=== PATIENT | male | born 1940 | race Caucasian/White ===

== ENCOUNTER → 2018-08-10 08:50 | Outpatient (CLI) | payer MEDICARE, SELFPAY ==
[2018-08-10 10:16] LABS: Alanine Aminotransferase 32 IU/L (21-72); Albumin 3.9 g/dL (3.5-5.0); Albumin Globulin Ratio 1.7 (1.0-2.8); Alkaline Phosphatase 55 U/L (38-126); Aspartate Aminotransferase 23 IU/L (17-59); BUN Creatinine Ratio 21.1 (6-22); Bilirubin Total 0.5 mg/dL (0.2-1.3); Blood Urea Nitrogen 19 mg/dL (9-20); Calcium 9.2 mg/dL (8.4-10.2); Carbon Dioxide 30 mmol/L (22-32); Chloride 103 mmol/L (98-107); Estimated Glomerular Filt Rate > 60.0 mL/min (>60); Globulin 2.3 g/dL (1.7-4.1); Glucose 111 mg/dL (80-110); HEMOLYSIS < 15 (0-50); Potassium 4.8 mmol/L (3.4-5.1); Sodium 143 mmol/L (137-145); Total Protein 6.2 g/dL (6.3-8.2)
[2018-08-14 09:07] LABS: Lipoprofile NMR SEE SEPARATE REPORTS
== END ==
PROVIDERS: Family Provider Physician Assistant; PCP Physician Assistant; Visit Provider Specialist
DX: E78.2 Mixed hyperlipidemia (principal)
CPT/HCPCS: 36415; 80053; 83704

== ENCOUNTER → 2019-05-17 07:17 | Outpatient (CLI) | payer MEDICARE, SELFPAY ==
[2019-05-17 08:37] LABS: Alanine Aminotransferase 38 IU/L (21-72); Albumin 4.1 g/dL (3.5-5.0); Albumin Globulin Ratio 1.7 (1.0-2.8); Alkaline Phosphatase 61 U/L (38-126); Aspartate Aminotransferase 30 IU/L (17-59); Bilirubin Total 0.5 mg/dL (0.2-1.3); Blood Urea Nitrogen 18 mg/dL (9-20); Calcium 9.2 mg/dL (8.4-10.2); Carbon Dioxide 33 mmol/L (22-32); Chloride 102 mmol/L (98-107); Estimated Glomerular Filt Rate > 60.0 mL/min (>60); Globulin 2.4 g/dL (1.7-4.1); Glucose 102 mg/dL (80-110); HEMOLYSIS < 15 (0-50); Potassium 4.2 mmol/L (3.4-5.1); Sodium 140 mmol/L (137-145); Total Protein 6.5 g/dL (6.3-8.2)
[2019-05-21 08:34] LABS: Lipoprofile NMR SEE SEPARATE REPORTS
== END ==
PROVIDERS: PCP Physician Assistant; Visit Provider Specialist
DX: E78.2 Mixed hyperlipidemia (principal)
CPT/HCPCS: 36415; 80053; 83704

== ENCOUNTER 2019-12-25 08:55 | Emergency (ER) | payer MEDICARE, SELFPAY ==
[2019-12-25] VITALS (9 sets, daily range): BP systolic 157–214; BP diastolic 70–104; PULSE 54–69; RESP 12–22; TEMP 36.4; O2SAT 97–100
--- NOTE | 2019-12-25 08:57 | DI.RAD.S_ITS ---
PROCEDURE: XR ACUTE ABDOMEN SERIES INDICATIONS: Abdominal pain, N/V/D TECHNIQUE: One view chest and two views of the abdomen were acquired. COMPARISON: None. FINDINGS: Surgical changes and devices: None. Chest: Lungs are clear. Heart size is normal. No pleural effusions. No pneumoperitoneum. Abdomen: Bowel gas pattern is normal. No suspicious calcifications. Visualized solid organ contours appear normal. Bones: No suspicious bony lesions. Mild degenerative changes in the right hip and right acromioclavicular joint. IMPRESSION: 1. No radiographic evidence of acute process in the abdomen. 2. No acute cardiopulmonary disease. Dictated by: Gracy Crain M.D. on 12/25/2019 at 10:04 Approved by: Gracy Crain M.D. on 12/25/2019 at 10:06
--- NOTE | 2019-12-25 09:07 | ED_ITS ---
HPI - Nausea/Vomiting/Diarrhea General Chief complaint: Nausea/Vomiting/Diarrhea Stated complaint: N/V/D , Syncopal Time Seen by Provider: 12/25/19 08:56 Source: patient, family and EMS Mode of arrival: EMS Limitations: no limitations History of Present Illness HPI Narrative: 78M non smoker with history of HTN, hyperlipidemia, SAH presents by EMS for chief complaint of 1 episode of vomiting and a few episodes of loose stools. He feels dehydrated and lightheaded upon sitting or standing. He went to bed in his normal state of health and awoke like this. He denies any chest pain, shortness of breath nor abdominal pain. He denies dysuria, frequency or urgency. He denies recent antibiotics, travel, exposure to ill persons or bad food. He denies any dietary or medication change. PCP is Danna Woo MD complaint: nausea, vomiting and diarrhea Onset (ago): hour(s) Description of Vomiting: food contents Description of Diarrhea: watery Associated Abdominal Pain: No Relieving factors: none Exacerbating factors: none Related Data Home Medications Medication Instructions Recorded Confirmed atorvastatin [Lipitor] 10 mg PO QAM #0 08/20/16 12/25/19 lisinopril 10 mg PO QAM #0 08/20/16 12/25/19 Previous Rx's Medication Instructions Recorded ondansetron 4 mg PO TID-QID PRN #10 tab 12/25/19 Allergies Allergy/AdvReac Type Severity Reaction Status Date / Time No Known Drug Allergies Allergy Verified 12/25/19 10:23 Review of Systems Constitutional Constitutional: Denies chills, Denies fatigue, Denies fever(s), Denies frequent falls, Denies lethargy and Reports weakness Eyes Eyes: Denies change in vision, Denies eye discharge, Denies irritation and Denies loss of vision ENT Ears, Nose, Mouth, and Throat: Denies change in voice, Denies dizziness, Denies neck pain, Denies sore throat and Denies throat swelling Cardiovascular Cardiovascular: Denies chest pain, Denies irregular heart rhythm, Denies lightheadedness, Denies palpitations, Denies dyspnea, Denies dyspnea on exertion and Denies orthopnea Respiratory Respiratory: Denies cough, Denies dyspnea, Denies dyspnea on exertion and Denies wheezing Gastrointestinal Gastrointestinal: Denies abdominal pain, Denies change in bowel habits, Reports diarrhea, Reports nausea and Reports vomiting Genitourinary Genitourinary: Denies hematuria, Denies flank pain, Denies urinary incontinence and Denies urinary urgency Musculoskeletal Musculoskeletal: Denies back pain, Denies muscle weakness, Denies neck pain, Denies numbness and Denies tingling Integumentary/Breasts Skin/Breast: Denies pruritus, Denies erythema, Denies rash and Denies wounds Neurologic Neurologic: Denies behavioral changes, Denies confusion, Denies dizziness, Denies frequent falls, Denies loss of vision, Denies numbness, Denies tingling and Reports weakness Psychiatric Psychiatric: Denies anxiety, Denies behavioral changes, Denies confusion, Denies depression, Denies homicidal ideation and Denies suicidal ideation Endocrine Endocrine: Denies fatigue, Denies flushing and Denies palpitations Hematologic/Lymphatic Hematologic/Lymphatic: Denies easy bruising Allergic/Immunologic Allergic/Immunologic: Denies urticaria, Denies throat swelling and Denies wheezing Patient History Social History Smoking Status: Never smoker Substance Use Type: does not use Exam Narrative Exam Narrative: GENERAL: [78] year old patient appears stated age. Well- nourished, well-developed patient, in mild distress. HEAD: Atraumatic. Normocephalic. EYES: Pupils equal round and reactive. Extraocular motions intact. No scleral icterus. No injection or drainage. ENT: Nose without bleeding, purulent drainage. Throat without erythema, tonsillar hypertrophy or exudate. Airway patent. NECK: Trachea midline. Non tender CARDIOVASCULAR: Regular rate and rhythm without murmurs, gallops, or rubs. RESPIRATORY: Clear to auscultation. Breath sounds equal bilaterally. No wheezes, rales, or rhonchi. GASTROINTESTINAL: Abdomen soft, non-tender, nondistended. EXTREMITIES: No edema or joint tenderness. BACK: Nontender without deformity or crepitance. No flank tenderness. NEURO: AOx3. SKIN: No rash or erythema of visible areas Initial Vital Signs Initial Vital Signs: Vital Signs Temperature 97.6 F 12/25/19 08:45 Pulse Rate 68 12/25/19 08:45 Respiratory Rate 12 12/25/19 08:45 Blood Pressure 194/88 H 12/25/19 08:45 Pulse Oximetry 100 12/25/19 08:45 Course Orders Ordered: ED Orders 12/25/19 10:11 CT angio head and neck Stat 12/25/19 10:13 Lactate (Lactic Acid) Stat Discontinued Medications Hydralazine HCl (Apresoline) 10 mg IV NOW ONE Stop: 12/25/19 10:10 Last Admin: 12/25/19 11:30 Dose: 10 mg Documented by: TERESA Sodium Chloride (Normal Saline 0.9%) 1,000 mls @ 1,000 mls/hr IV BOLUS ONE Stop: 12/25/19 09:55 Last Infusion: 12/25/19 10:20 Dose: 0 mls/hr Documented by: Admin: 12/25/19 09:19 Dose: 1,000 mls/hr Documented by: MARCOS Sodium Chloride (Normal Saline 0.9%) 1,000 mls @ 150 mls/hr IV BOLUS ONE Stop: 12/25/19 18:12 Last Infusion: 12/25/19 12:46 Dose: 0 mls/hr Documented by: Admin: 12/25/19 11:34 Dose: 150 mls/hr Documented by: TERESA Ondansetron HCl (Zofran) 4 mg IV Q4HR PRN PRN Reason: Nausea And Vomiting Last Admin: 12/25/19 09:19 Dose: 4 mg Documented by: MARCOS Pantoprazole Sodium (Protonix) 40 mg IV NOW ONE Stop: 12/25/19 08:57 Last Admin: 12/25/19 09:19 Dose: 40 mg Documented by: MARCOS Vital Signs Vital signs: Vital Signs - 8 hr 12/25/19 11:21 12/25/19 11:30 12/25/19 12:32 Pulse Rate 60 67 69 Respiratory Rate 14 17 Blood Pressure 187/104 H Blood Pressure [Right Arm] 187/104 H 157/70 H Pulse Oximetry 99 97 12/25/19 12:45 12/25/19 13:16 Pulse Rate 60 60 Respiratory Rate 15 Blood Pressure 157/78 H Blood Pressure [Right Arm] 170/74 H Pulse Oximetry 99 MDM - Nausea/Vomiting/Diarrhea Lab Data Result diagrams: 12/25/19 09:10 12/25/19 09:10 Labs: Lab Results 12/25/19 12/25/19 12/25/19 Range/Units 09:10 09:10 10:13 WBC 4.3 L (4.5-11.0) X10^3/uL RBC 4.42 L (4.5-5.9) X10^6/uL Hgb 14.0 (13.5-17.5) g/dL Hct 40.3 L (41-53) % MCV 91.2 (80-100) fL MCH 31.6 (26-34) PG MCHC 34.7 (30-36) % RDW 13.4 (11.6-14.8) % Plt Count 153 (150-400) X10^3/uL Neut % (Auto) 65.9 (50-75) % Lymph % (Auto) 21.9 L (25-40) % Roosevelt % (Auto) 8.9 (3-14) % Eos % (Auto) 2.9 (2-4) % Baso % (Auto) 0.4 (0-2) % Neut # (Auto) 2800 (0910-1173) /uL Lymph # (Auto) 900 L (6341-7315) /uL Roosevelt # (Auto) 400 (0-900) /uL Eos # (Auto) 100 (0-450) /uL Baso # (Auto) 0 (0-100) /uL Sodium 136 L (137-145) mmol/L Potassium 4.1 (3.4-5.1) mmol/L Chloride 101 (98-107) mmol/L Carbon Dioxide 29 (22-32) mmol/L BUN 17 (9-20) mg/dL Creatinine 0.81 (0.66-1.25) mg/dL Estimated GFR > 60.0 (>60) mL/min BUN/Creatinine Ratio 21.0 (6-22) Glucose 157 H (80-110) mg/dL Lactate 2.0 (0.7-2.1) mmol/L Calcium 9.3 (8.4-10.2) mg/dL Total Bilirubin 0.5 (0.2-1.3) mg/dL AST 35 (17-59) IU/L ALT 39 (<50) IU/L Alkaline Phosphatase 55 (38-126) U/L Total Protein 7.0 (6.3-8.2) g/dL Albumin 4.3 (3.5-5.0) g/dL Globulin 2.7 (1.7-4.1) g/dL Albumin/Globulin Ratio 1.6 (1.0-2.8) Urine Dip Bedside Urine Glucose Negative Bedside Urine Bilirubin - Negative Bedside Urine Ketone - Negative Urine Specific Marshall 1.015 Bedside Urine Occult Blood +/- Bedside Urine pH 7.5 Bedside Urine Protein +/- 15 Bedside Urine Urobilinogen - Negative Bedside Urine Nitrite - Negative Bedside Urine Leukocytes - Negative Esterase Imaging Data CT scan - head: Radiologist's Impression: Jimbo Duran 78 M [address] [address] [address] Scan Report Signed Patient: Jimbo Duran MMR#: [id number] : [id number]:[id number] Age/Sex: 78 / MDate of Service: 12/25/19 Loc: ED Accession Number: [id number] Procedure: CT head/brain wo con Ordering Provider: Jaylan Reilly D.O. PROCEDURE: CT HEAD/BRAIN WO CON INDICATIONS: syncope, hx SAH, aneurysms TECHNIQUE: Noncontrast 4.5 mm thick angled axial sections acquired from the foramen magnum to the vertex, with coronal and sagittal reformats. For radiation dose reduction, the following was used: automated exposure control, adjustment of mA and/or kV according to patient size. COMPARISON: None. FINDINGS: Image quality: Excellent. CSF spaces: Basal cisterns are patent. No extra-axial fluid collections. The ventricles are symmetric in size and shape. Brain: No intracranial bleeds or masses. There is cerebral volume loss for age, with resultant ventricular and sulcal prominence. There are periventricular and deep white matter chronic small vessel ischemic changes. There is intracranial internal carotid artery atherosclerosis. Skull and face: Calvarium and visualized facial bones appear intact, without suspicious lesions. Sinuses: Visualized sinuses and mastoids are clear. IMPRESSION: No acute intracranial disease process. Dictated by: Rachana Orosco MD, PhD on 12/25/2019 at 10:27 Approved by: Rachana Orosco MD, PhD on 12/25/2019 at 10:28 Chart [facility] DATE TYPE STATUS AUTHOR Hx 12/25/19 10:11 Simone Rod 12/25/19 09:42 Rachana Orosco 12/25/19 08:57 Gracy [place],Jimbo M 78, M1940 [facility] ER, Main ED 86.183kg Nausea/Vomiting/Diarrhea Search Chart No Data to Display ONSET Today 13:16 Jimbo Duran 78 M [address] [address] [address] Scan Report Signed Patient: Jimbo Duran MMR#: [id number] : [id number]:[id number] Age/Sex: 78 / MDate of Service: 12/25/19 Loc: ED Accession Number: [id number] Procedure: CT angio head and neck Ordering Provider: Jaylan Reilly D.O. PROCEDURE: CT ANGIO HEAD AND NECK INDICATIONS: syncope, HTN, vomiting, hx SAH TECHNIQUE: Pre-contrast 4.5 mm thick sections acquired from the foramen magnum to the vertex. After the administration of intravenous contrast, 1 mm thick sections acquired from the aortic arch through the [place]. Post-contrast 4.5 mm thick sections then re-acquired from the foramen magnum to the vertex. 3-dimensional zjtlzna-ocxnsaaos-fcoijrhinl (MIP) and/or volume rendering reformats were acquired of the central intracranial vasculature and neck separately. COMPARISON: [facility], CT, HEAD WITHOUT CONTRAST, 08/20/2016, 14:56. [facility], CT, CT HEAD/BRAIN WO CON, 12/25/2019, 9:40. FINDINGS: Image quality: There is streak artifact due to injected contrast from the left upper extremity. BRAIN: CSF spaces: Ventricles are unchanged in size and shape. Basal cisterns are patent. No extra-axial fluid collections. Brain: No hematoma collection, mass, or mass effect. Connor-white matter interface appears preserved. There are periventricular and subcortical hypodensities compatible with moderate chronic small vessel ischemic changes. Skull and face: Calvarium and facial bones appear intact, without suspicious lesions. Orbits appear normal. Sinuses: Sinuses and mastoids are clear. HEAD CT ANGIOGRAPHY: Anterior circulation: Intracranial internal carotid arteries are normal in size and appear patent bilaterally. There is mild atherosclerotic calcification along the cavernous segments of the internal carotid arteries. The paired anterior cerebral arteries appear patent bilaterally. The anterior communicating artery also appears patent. The middle cerebral arteries appear patent bilaterally. No high-grade stenosis, occlusion, or filling defects. No cerebral aneurysms identified. Posterior circulation: Visualized portions of the vertebral arteries demonstrate normal caliber, and join to form a patent basilar artery. The posterior cerebral arteries appears patent bilaterally. No high-grade stenosis, occlusion, or filling defects. No cerebral aneurysms identified. NECK CT ANGIOGRAPHY: Carotid system: The great vessels demonstrate a conventional anatomy as they arise from the aortic arch. The origins of the common carotid arteries appear patent. The common carotid arteries demonstrate normal caliber and courses. There is bilateral calcified plaque in the carotid bulbs with narrowing of less than 50%. The subsequent internal carotid arteries demonstrate normal calibers and courses. Posterior circulation: The origins of the vertebral arteries both appear patent. The more superior extracranial portions of both vertebral arteries also demonstrate normal courses and calibers. They join to form a patent basilar artery. There is atherosclerotic plaque with stenoses at the origin and in the proximal left subclavian artery with narrowing of greater than 50%. Evaluation is limited by streak artifact from calcified plaque and injected contrast in the adjacent left innominate vein. Soft tissues: Visualized neck soft tissues demonstrate no suspicious abnormalities. Bones: No suspicious bony lesions. Visualized cervical spine demonstrates straightening of the cervical lordosis. There are degenerative changes throughout the cervical spine including including moderate to severe degeneration of C5-C6 and C6-C7 with posterior disc osteophyte complexes. There is associated moderate to severe bony spinal canal narrowing at C5-C6 and moderate narrowing at C6-7. IMPRESSION: 1. No discrete cerebral aneurysm identified. 2. No high-grade stenosis or occlusion of the central intracranial arteries. 3. Bilateral narrowing of less than 50% in the carotid bulbs. 4. 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 Any quantitative measurements of stenosis were performed using NASCET criteria. Dictated by: Simone Rod M.D. on 12/25/2019 at 10:59 Approved by: Simone Rod M.D. on 12/25/2019 at 11:25 MDM Narrative Medical decision making narrative: Multiple etiologies for patient's symptoms considered including: [N/V/D is likely viral in origin given lack of other risks. Multiple etiologies of syncope considered including vagal (likely given that episode happened on toilet while having diarrhea). Given similar history to prior episode of syncope secondary to possible aneurysm additional CTA ordered] Patient's symptoms improved or duration of stay with above-stated therapies. Findings and discharge diagnosis discussed with patient/family followed by verbalization of understanding Return precautions discussed with patient/family whom verbalize understanding. Discharge Plan Departure Patient Disposition: Home Clinical Impression: Dehydration Vomiting Qualifiers: Vomiting type: unspecified Vomiting Intractability: non-intractable Nausea presence: with nausea Qualified Code(s): R11.2 - Nausea with vomiting, unspecified Hypertension Qualifiers: Hypertension type: essential hypertension Qualified Code(s): I10 - Essential (primary) hypertension Discharge Date/Time: 12/25/19 13:17 Instructions: Essential Hypertension, DI for Dehydration -- Adult, DI for Vomiting -- Adult Activity Restrictions/Additional Instructions: *You have been diagnosed with [vomiting, diarrhea, hypertension] *What to do: *Take medications as directed: Please increase your lisinopril from 10 mg daily to 20 mg daily for the next 5 days, or until you follow-up with your primary care provider if sooner *Follow up with your primary care provider in 2-3 days, call for an appointment. Let them know you were seen in the Emergency Department and that we ask that you be seen in follow up *Return to ER if you should have any new, worsening or concerning symptoms 1. Drink plenty of fluids with frequent small sips. 2. For the next 24 hours a clear liquid diet is advised. After that please employ a brat diet which would include bananas, rice, apples, toast. Prescriptions: New ondansetron 4 mg tablet,disintegrating 4 mg PO TID-QID PRN (Reason: nausea and vomiting) Qty: 10 RF: 0 No Action lisinopril 10 MG tablet 10 mg PO QAM Qty: 0 RF: 0 atorvastatin [Lipitor] 10 MG tablet 10 mg PO QAM Qty: 0 RF: 0 Referrals: Ami Woo PA-C [Primary Care Provider] -
[2019-12-25] MEDS: PANTOPRAZOLE 40 MG VIAL IV (09:19)
[2019-12-25] MEDS: SODIUM CHLORIDE 0.9% 1,000 ML 1000 ML IV (09:19)
[2019-12-25] MEDS: ONDANSETRON 4 MG/2 ML INJ IV (09:19)
[2019-12-25 09:26] LABS: Add Manual Diff / Slide Review NO; Basophils Absolute Auto 0 /uL (0-100); Basophils Percent Auto 0.4 % (0-2); Eosinophils Absolute Auto 100 /uL (0-450); Eosinophils Percent Auto 2.9 % (2-4); Hematocrit 40.3 % (41-53); Lymphocytes Absolute Auto 900 /uL (1100-4500); Lymphocytes Percent Auto 21.9 % (25-40); Mean Corpuscular HGB Conc 34.7 % (30-36); Mean Corpuscular Hemoglobin 31.6 PG (26-34); Mean Corpuscular Volume 91.2 fL (80-100); Monocytes Absolute Auto 400 /uL (0-900); Monocytes Percent Auto 8.9 % (3-14); Neutrophils Absolute Auto 2800 /uL (1500-7000); Neutrophils Percent Auto 65.9 % (50-75); Platelet Count 153 X10^3/uL (150-400); Red Blood Cell Count 4.42 X10^6/uL (4.5-5.9); Red Cell Distribution Width 13.4 % (11.6-14.8); White Blood Cell Count 4.3 X10^3/uL (4.5-11.0)
[2019-12-25 09:38] LABS: Alanine Aminotransferase 39 IU/L (<50); Albumin 4.3 g/dL (3.5-5.0); Albumin Globulin Ratio 1.6 (1.0-2.8); Alkaline Phosphatase 55 U/L (38-126); Aspartate Aminotransferase 35 IU/L (17-59); Bilirubin Total 0.5 mg/dL (0.2-1.3); Blood Urea Nitrogen 17 mg/dL (9-20); Calcium 9.3 mg/dL (8.4-10.2); Carbon Dioxide 29 mmol/L (22-32); Chloride 101 mmol/L (98-107); Estimated Glomerular Filt Rate > 60.0 mL/min (>60); Globulin 2.7 g/dL (1.7-4.1); Glucose 157 mg/dL (80-110); HEMOLYSIS < 15 (0-50); Potassium 4.1 mmol/L (3.4-5.1); Sodium 136 mmol/L (137-145)
--- NOTE | 2019-12-25 09:42 | DI.CT.S_ITS ---
PROCEDURE: CT HEAD/BRAIN WO CON INDICATIONS: syncope, hx SAH, aneurysms TECHNIQUE: Noncontrast 4.5 mm thick angled axial sections acquired from the foramen magnum to the vertex, with coronal and sagittal reformats. For radiation dose reduction, the following was used: automated exposure control, adjustment of mA and/or kV according to patient size. COMPARISON: None. FINDINGS: Image quality: Excellent. CSF spaces: Basal cisterns are patent. No extra-axial fluid collections. The ventricles are symmetric in size and shape. Brain: No intracranial bleeds or masses. There is cerebral volume loss for age, with resultant ventricular and sulcal prominence. There are periventricular and deep white matter chronic small vessel ischemic changes. There is intracranial internal carotid artery atherosclerosis. Skull and face: Calvarium and visualized facial bones appear intact, without suspicious lesions. Sinuses: Visualized sinuses and mastoids are clear. IMPRESSION: No acute intracranial disease process. Dictated by: Rachana Orosco MD, PhD on 12/25/2019 at 10:27 Approved by: Rachana Orosco MD, PhD on 12/25/2019 at 10:28
--- NOTE | 2019-12-25 10:11 | DI.CT.S_ITS ---
PROCEDURE: CT ANGIO HEAD AND NECK INDICATIONS: syncope, HTN, vomiting, hx SAH TECHNIQUE: Pre-contrast 4.5 mm thick sections acquired from the foramen magnum to the vertex. After the administration of intravenous contrast, 1 mm thick sections acquired from the aortic arch through the [employer] of [place]. Post-contrast 4.5 mm thick sections then re-acquired from the foramen magnum to the vertex. 3-dimensional bqbnxpa-nblyzxxzw-ooxskvfaqu (MIP) and/or volume rendering reformats were acquired of the central intracranial vasculature and neck separately. COMPARISON: [facility], CT, HEAD WITHOUT CONTRAST, 08/20/2016, 14:56. [facility], CT, CT HEAD/BRAIN WO CON, 12/25/2019, 9:40. FINDINGS: Image quality: There is streak artifact due to injected contrast from the left upper extremity. BRAIN: CSF spaces: Ventricles are unchanged in size and shape. Basal cisterns are patent. No extra-axial fluid collections. Brain: No hematoma collection, mass, or mass effect. Connor-white matter interface appears preserved. There are periventricular and subcortical hypodensities compatible with moderate chronic small vessel ischemic changes. Skull and face: Calvarium and facial bones appear intact, without suspicious lesions. Orbits appear normal. Sinuses: Sinuses and mastoids are clear. HEAD CT ANGIOGRAPHY: Anterior circulation: Intracranial internal carotid arteries are normal in size and appear patent bilaterally. There is mild atherosclerotic calcification along the cavernous segments of the internal carotid arteries. The paired anterior cerebral arteries appear patent bilaterally. The anterior communicating artery also appears patent. The middle cerebral arteries appear patent bilaterally. No high-grade stenosis, occlusion, or filling defects. No cerebral aneurysms identified. Posterior circulation: Visualized portions of the vertebral arteries demonstrate normal caliber, and join to form a patent basilar artery. The posterior cerebral arteries appears patent bilaterally. No high-grade stenosis, occlusion, or filling defects. No cerebral aneurysms identified. NECK CT ANGIOGRAPHY: Carotid system: The great vessels demonstrate a conventional anatomy as they arise from the aortic arch. The origins of the common carotid arteries appear patent. The common carotid arteries demonstrate normal caliber and courses. There is bilateral calcified plaque in the carotid bulbs with narrowing of less than 50%. The subsequent internal carotid arteries demonstrate normal calibers and courses. Posterior circulation: The origins of the vertebral arteries both appear patent. The more superior extracranial portions of both vertebral arteries also demonstrate normal courses and calibers. They join to form a patent basilar artery. There is atherosclerotic plaque with stenoses at the origin and in the proximal left subclavian artery with narrowing of greater than 50%. Evaluation is limited by streak artifact from calcified plaque and injected contrast in the adjacent left innominate vein. Soft tissues: Visualized neck soft tissues demonstrate no suspicious abnormalities. Bones: No suspicious bony lesions. Visualized cervical spine demonstrates straightening of the cervical lordosis. There are degenerative changes throughout the cervical spine including including moderate to severe degeneration of C5-C6 and C6-C7 with posterior disc osteophyte complexes. There is associated moderate to severe bony spinal canal narrowing at C5-C6 and moderate narrowing at C6-7. IMPRESSION: 1. No discrete cerebral aneurysm identified. 2. No high-grade stenosis or occlusion of the central intracranial arteries. 3. Bilateral narrowing of less than 50% in the carotid bulbs. 4. 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 Any quantitative measurements of stenosis were performed using NASCET criteria. Dictated by: Simone Rod M.D. on 12/25/2019 at 10:59 Approved by: Simone Rod M.D. on 12/25/2019 at 11:25
[2019-12-25] MEDS: HYDRALAZINE 20 MG/ML VIAL 10 MG IV (11:30)
[2019-12-25] MEDS: SODIUM CHLORIDE 0.9% 1,000 ML 150 ML IV (11:34)
--- NOTE | 2019-12-25 12:35 | PC.NURSE ---
Pt w/ nausea / vomiting and near syncopal event this am. No LOC or fall. 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 Pt neuro is intact, a/o x 4. BEFAST negative. Denies headache or recent trauma.
--- NOTE | 2019-12-25 17:47 | PC.NURSE ---
Ami Woo called back to get update on patient. Given verbal report. She will arrange for follow up.
== END 2019-12-25 13:17 | disposition home or self-care (01) ==
PROVIDERS: Emergency Provider Emergency Medicine; PCP Physician Assistant; Referring Provider Emergency Medicine
DX: E86.0 Dehydration (principal); R11.2 Nausea with vomiting, unspecified; I10 Essential (primary) hypertension; R19.7 Diarrhea, unspecified; E78.5 Hyperlipidemia, unspecified; R53.1 Weakness; Z86.73 Personal history of transient ischemic attack (TIA), and cerebral infarction without residual deficits
CPT/HCPCS: 36415; 70450; 70496; 70498; 74022; 80053; 81003; 83605; 85025; 93005; 93010; 96361; 96374; 96375; 99284; C9113; J0360; J2405; Q9967

== ENCOUNTER → 2020-01-10 07:46 | Outpatient (CLI) | payer MEDICARE, SELFPAY ==
[2020-01-10 09:36] LABS: BUN Creatinine Ratio 27.6 (6-22); Blood Urea Nitrogen 24 mg/dL (9-20); Calcium 9.5 mg/dL (8.4-10.2); Carbon Dioxide 28 mmol/L (22-32); Chloride 106 mmol/L (98-107); Estimated Glomerular Filt Rate > 60.0 mL/min (>60); Glucose 114 mg/dL (80-110); HEMOLYSIS < 15 (0-50); Potassium 4.7 mmol/L (3.4-5.1); Sodium 139 mmol/L (137-145)
== END ==
PROVIDERS: PCP Physician Assistant; Referring Provider Specialist; Visit Provider Specialist
DX: I10 Essential (primary) hypertension (principal)
CPT/HCPCS: 36415; 80048

== ENCOUNTER → 2020-04-22 08:04 | Outpatient (CLI) | payer MEDICARE, SELFPAY ==
[2020-04-22 09:57] LABS: Alanine Aminotransferase 29 IU/L (<50); Albumin 3.9 g/dL (3.5-5.0); Albumin Globulin Ratio 1.8 (1.0-2.8); Alkaline Phosphatase 54 U/L (38-126); Aspartate Aminotransferase 27 IU/L (17-59); Bilirubin Total 0.6 mg/dL (0.2-1.3); Blood Urea Nitrogen 18 mg/dL (9-20); Calcium 9.3 mg/dL (8.4-10.2); Carbon Dioxide 32 mmol/L (22-32); Chloride 104 mmol/L (98-107); Estimated Glomerular Filt Rate > 60.0 mL/min (>60); Globulin 2.2 g/dL (1.7-4.1); Glucose 118 mg/dL (80-110); HEMOLYSIS < 15 (0-50); Potassium 4.9 mmol/L (3.4-5.1); Sodium 142 mmol/L (137-145); Total Protein 6.1 g/dL (6.3-8.2)
[2020-05-05 16:03] LABS: LDL Particle 1139; LDL-Cholsterol 82
[2020-05-05 16:04] LABS: HDL-Cholesterol 60; Triglycerides 121
[2020-05-05 16:05] LABS: Cholesterol, Total 163; HDL-Particle (Total) 40.3; Small LDL- Particle 596
[2020-05-05 16:06] LABS: LDL Size 20.7
== END ==
PROVIDERS: PCP Physician Assistant; Referring Provider Specialist; Visit Provider Specialist
DX: E78.2 Mixed hyperlipidemia (principal)
CPT/HCPCS: 36415; 80053; 80061; 83704

== ENCOUNTER → 2020-08-21 11:55 | Outpatient (CLI) | payer MEDICARE, SELFPAY ==
--- NOTE | 2020-08-21 12:00 | DI.MRI.S_ITS ---
PROCEDURE: MR CERVICAL SPINE WO CON INDICATIONS: Spinal stenosis, cervical region TECHNIQUE: Noncontrast sagittal T1 spin echo and T2 fast spin echo, sagittal STIR, foraminal oblique sagittal T2 fast spin echo, and axial gradient echo or T2 fast spin echo through the cervical spine. COMPARISON: None. FINDINGS: Image quality: Excellent. Alignment and Curvature: There is normal bony alignment. Bone Marrow: Marrow demonstrates normal overall signal. Spinal Cord: Visualized spinal cord has normal size and signal. No cerebellar tonsillar herniation. Paraspinous Soft Tissues: No paravertebral masses. Prevertebral soft tissues are normal in thickness. C2-C3: Mild disc bulge. No canal stenosis. Bilateral uncovertebral joint hypertrophy. Impressive right facet hypertrophy. Moderate to severe right foraminal narrowing with impingement on the exiting right C3 nerve root. C3-C4: Disc bulge. Bilateral facet and ligament hypertrophy. Mild canal stenosis. AP diameter of the canal is 9 mm. Bilateral uncovertebral joint hypertrophy. Severe right foraminal narrowing and marked left foraminal narrowing with bilateral C4 nerve root impingement. C4-C5: Disc bulge. AP diameter of the canal is 1 cm. Bilateral facet hypertrophy. Moderate to severe bilateral foraminal narrowing with impingement on the exiting bilateral C5 nerve roots. C5-C6: Large relatively broad-based left posterior disc protrusion/extrusion significantly impinging on the ventral surface of the left side of the cord markedly narrowing the left hemicanal bilateral uncovertebral joint hypertrophy and facet hypertrophy with bilateral severe foraminal narrowing and impingement on the bilateral C6 nerve roots. C6-C7: Moderate canal stenosis. AP diameter of the canal is 8 mm. Large bilateral uncovertebral joint osteophytes. Severe right foraminal narrowing and moderate to severe left foraminal narrowing. Impingement on the right C7 nerve root. Flattening deformity on the exiting left C7 nerve root. C7-T1: No canal stenosis or foraminal stenosis. IMPRESSION: 1. Severe multilevel cervical spondylosis. 2. At C5-C6, there is a large relatively broad-based left posterior disc protrusion/extrusion significantly impinging the ventral surface of the left side of the cord, and markedly narrowing the left gerri canal. 3. Canal stenosis is mild at C3-C4 and moderate at C6-C7 4. Significant multilevel foraminal narrowing as described above, with multilevel foraminal nerve root impingement bilaterally. Dictated by: Lamont Talley M.D. on 08/21/2020 at 14:05 Approved by: Lamont Talley M.D. on 08/21/2020 at 14:14
== END ==
PROVIDERS: PCP Physician Assistant; Referring Provider Orthopaedic Surgery; Visit Provider Orthopaedic Surgery
DX: M48.02 Spinal stenosis, cervical region (principal); M47.812 Spondylosis without myelopathy or radiculopathy, cervical region; M50.222 Other cervical disc displacement at C5-C6 level
CPT/HCPCS: 72141

== ENCOUNTER → 2020-10-30 07:56 | Outpatient (CLI) | payer MEDICARE, SELFPAY ==
[2020-10-30 09:56] LABS: Alanine Aminotransferase 26 IU/L (<50); Albumin 4.1 g/dL (3.5-5.0); Albumin Globulin Ratio 1.9 (1.0-2.8); Alkaline Phosphatase 58 U/L (38-126); Aspartate Aminotransferase 30 IU/L (17-59); BUN Creatinine Ratio 26.5 (6-22); Bilirubin Total 0.4 mg/dL (0.2-1.3); Blood Urea Nitrogen 22 mg/dL (9-20); Calcium 9.4 mg/dL (8.4-10.2); Carbon Dioxide 29 mmol/L (22-32); Chloride 103 mmol/L (98-107); Estimated Glomerular Filt Rate > 60.0 mL/min (>60); Globulin 2.2 g/dL (1.7-4.1); Glucose 121 mg/dL (80-110); HEMOLYSIS < 15 (0-50); Potassium 4.2 mmol/L (3.4-5.1); Sodium 140 mmol/L (137-145); Total Protein 6.3 g/dL (6.3-8.2)
[2020-11-02 02:10] LABS: Cholesterol, Total 157 mg/dL (100-199); HDL-Cholesterol 51 mg/dL (>39); HDL-Particle (Total) 36.7 umol/L (>=30.5); LDL Particle 1103 nmol/L (<1000); LDL Size 20.3 nm (>20.5); LDL-Cholsterol 80 mg/dL (0-99); LP-IR Score 51 (<=45); Small LDL- Particle 578 nmol/L (<=527); Triglycerides 151 mg/dL (0-149)
== END ==
PROVIDERS: PCP Physician Assistant; Referring Provider Specialist; Visit Provider Specialist
DX: E78.00 Pure hypercholesterolemia, unspecified (principal)
CPT/HCPCS: 36415; 80053; 80061; 83704

== ENCOUNTER → 2020-11-03 09:09 | Outpatient (CLI) | payer MEDICARE, SELFPAY ==
--- NOTE | 2020-11-03 | DI.US.S_ITS ---
PROCEDURE: US CAROTID DOPPLER BI INDICATIONS: BILATERAL STENOSIS TECHNIQUE: Color and pulse Doppler interrogation was performed of both carotid systems, with image documentation and velocity measurements. COMPARISON: [facility], , CAROTID ARTERY DOPPLER BILAT, 10/18/2017, 10:30. [facility], , CAROTID ARTERY DOPPLER BILAT, 08/26/2016, 9:09. FINDINGS: Stenosis calculations are based on SRU (Society of Radiologists in Ultrasound) criteria. The flow velocities and the arterial waveforms are normal within both carotid arterial systems. Atherosclerotic plaque is seen on both sides. The estimated degree of internal carotid artery stenosis is less than 50%. Antegrade flow is confirmed within both vertebral arteries. IMPRESSION: No hemodynamically significant stenosis is seen. No significant change from the prior. Atherosclerotic plaque is noted bilaterally. Dictated by: Patricio More M.D. on 11/03/2020 at 9:28 Approved by: Patricio More M.D. on 11/03/2020 at 9:28
--- NOTE | 2020-11-03 | DI.ECHO.S_ITS ---
[facility] +---------+ : : [address] [place] : : : : [id number] : : : : Phone: [phone]+ Echocardiogram Report + + :Name: IGOR FANG Study Date: 11/03/2020 Height: 73 in : :[facility] ReadingLocation: Weight: 190 lb : : Gender: Male BSA: 2.1 m2 : :: 1940 Age: 79 yrs BP: 164/92 mmHg: :Reason For Study: SYNCOPE AND COLLAPSE : :Ordering Physician: NELLI, : :POPEYE Performed By: Sobia Robles : :Referring: POPEYE AIKEN : + + Interpretation Summary Left ventricular systolic function remains normal with an estimated ejection fraction of 55 to 60% without any focal wall motion abnormality. Left ventricular volumes are normal with borderline LVH which is slightly more prominent compared to the previous study. There continues to be a probable relaxation abnormality of diastolic function with probable normal filling pressures although perhaps slightly higher compared to the previous exam. The right ventricle remains normal and unchanged from the previous study. Right ventricular systolic pressure cannot be estimated but CVP is likely around 3 mmHg. There is borderline left atrial enlargement and measures larger compared to the previous study. There is mild mitral regurgitation that is unchanged from previous exam but no other significant valvular abnormality. Procedure: A two-dimensional transthoracic echocardiogram with color flow and Doppler was performed. The study quality was technically adequate. Comparison is made with the echocardiogram of 09/01/2016. The patient was in sinus bradycardia with heart rates between 63-75 bpm during the exam. Left Ventricle: The left ventricle is normal in size. There is borderline concentric left ventricular hypertrophy. The estimated left ventricular end diastolic volume is 97 ml. The ejection fraction is estimated to be 55-60%. Left ventricular systolic function appears normal without focal wall motion abnormalities. Diastolic parameters suggest a relaxation abnormality of the left ventricle, consistent with probable normal filling pressures. This is unchanged compared to the previous study. Right Ventricle: The right ventricle is normal in size and function. This is unchanged compared to the previous study. Atria: The left atrium is borderline dilated. The left atrium has mildly increased in size since the prior echo exam. Right atrial size is normal. This is unchanged compared to the previous study. There is no Doppler evidence for an interatrial shunt. Mitral Valve: There is mild mitral annular calcification. There is mild mitral regurgitation. This is unchanged compared to the previous study. Aortic Valve: The aortic valve is trileaflet. The aortic valve is slightly calcified. The aortic valve opens well. There is no aortic valve stenosis. No aortic regurgitation is present. Tricuspid Valve: The tricuspid valve is normal in structure and function. There is trace tricuspid regurgitation. Pulmonary artery pressures cannot be estimated because of the lack of a measurable TR jet velocity but the IVC suggests a CVP of around 3 mmHg. Pulmonic Valve: The pulmonic valve leaflets are thin and pliable; valve motion is normal. There is trace pulmonic regurgitation. There is no other significant valvular heart disease. Great Vessels: The aortic root is normal size. The dimensions of the ascending aorta are normal. The IVC is of normal diameter and collapses greater than 50% with a sniff. This suggests a low right atrial pressure of 3 mm Hg. Pericardium/ Pleura There is no pericardial effusion. There is no pleural effusion. MMode/2D Measurements & Calculations LVIDd: 4.7 cm LVOT diam: 2.1 cm LVIDs: 3.0 cm Ao root diam: 3.4 cm FS: 36.0 % asc Aorta Diam: 3.2 cm EPSS: 1.2 cm IVSd: 1.1 cm LVPWd: 0.89 cm LV brown. diameter/BSA (cm/m^2): 2.2 LV sys. diameter/BSA (cm/m^2): 1.4 LA A2 area: 23.6 cm2 RA long axis: 5.7 cm LA A4 area: 19.6 cm2 RA area: 17.1 cm2 LA length (vol): 5.4 cm RA vol: 43.8 ml LA vol: 72.1 ml RA : 20.8 ml/m2 LA vol index: 34.2 ml/m2 IVC diam: 1.2 cm RVD1 (basal): 3.8 cm TAPSE: 2.3 cm Doppler Measurements & Calculations Ao V2 max: 158.0 cm/sec LVOT Max Eddie: 92.2 cm/sec Ao V2 mean: 110.5 cm/sec LV V1 max P.4 mmHg Ao max P.0 mmHg LV V1 VTI: 22.4 cm Ao mean P.5 mmHg EMIGDIO(I,D): 2.2 cm2 Ao V2 VTI: 35.8 cm EMIGDIO(V,D): 2.0 cm2 sev ratio: 0.63 EMIGDIO indexed to BSA (cm^2/m^2): 1.0 MV E max eddie: 98.1 cm/sec PA V2 max: 112.8 cm/sec MV A max eddie: 104.6 cm/sec PA V2 mean: 75.1 cm/sec MV E/A: 0.94 PA mean P.6 mmHg Med Peak E' Eddie: 6.4 cm/sec PA pr(Accel): 37.9 mmHg E/E' med: 15.3 Lat Peak E' Eddie: 8.9 cm/sec E/E' lat: 11.1 E/e' average: 13.2 MV dec time: 0.15 sec SV(LVOT): 78.5 ml Reading Physician:03:49 PM
== END ==
PROVIDERS: PCP Physician Assistant; Referring Provider Specialist; Visit Provider Specialist
DX: R55 Syncope and collapse (principal); I65.23 Occlusion and stenosis of bilateral carotid arteries; I34.0 Nonrheumatic mitral (valve) insufficiency
CPT/HCPCS: 93306; 93880

== ENCOUNTER → 2021-01-26 07:39 | Outpatient (CLI) | payer MEDICARE, SELFPAY ==
[2021-01-26 10:08] LABS: BUN Creatinine Ratio 25.8 (6-22); Blood Urea Nitrogen 23 mg/dL (9-20); Calcium 9.1 mg/dL (8.4-10.2); Carbon Dioxide 29 mmol/L (22-32); Chloride 104 mmol/L (98-107); Estimated Glomerular Filt Rate > 60.0 mL/min (>60); Glucose 97 mg/dL (80-110); HEMOLYSIS < 15 (0-50); Potassium 4.4 mmol/L (3.4-5.1); Sodium 139 mmol/L (137-145)
== END ==
PROVIDERS: PCP Physician Assistant; Referring Provider Physician Assistant; Visit Provider Physician Assistant
DX: I10 Essential (primary) hypertension (principal)
CPT/HCPCS: 36415; 80048

== ENCOUNTER → 2021-05-04 08:00 | Outpatient (CLI) | payer MEDICARE, SELFPAY ==
[2021-05-04 08:59] LABS: Alanine Aminotransferase 41 IU/L (<50); Albumin 4.2 g/dL (3.5-5.0); Albumin Globulin Ratio 1.8 (1.0-2.8); Alkaline Phosphatase 54 U/L (38-126); Aspartate Aminotransferase 41 IU/L (17-59); BUN Creatinine Ratio 23.8 (6-22); Bilirubin Total 0.5 mg/dL (0.2-1.3); Blood Urea Nitrogen 19 mg/dL (9-20); Calcium 9.2 mg/dL (8.4-10.2); Carbon Dioxide 32 mmol/L (22-32); Chloride 102 mmol/L (98-107); Estimated Glomerular Filt Rate > 60.0 mL/min (>60); Globulin 2.4 g/dL (1.7-4.1); Glucose 116 mg/dL (80-110); HEMOLYSIS < 15 (0-50); Potassium 4.9 mmol/L (3.4-5.1); Sodium 138 mmol/L (137-145); Total Protein 6.6 g/dL (6.3-8.2)
[2021-05-06 08:50] LABS: Cholesterol, Total 147 mg/dL (100-199); HDL-Cholesterol 61 mg/dL (>39); HDL-Particle (Total) 49.7 umol/L (>=30.5); LDL Particle 881 nmol/L (<1000); LDL Size 20.1 nm (>20.5); LDL-Cholsterol 64 mg/dL (0-99); LP-IR Score 46 (<=45); Small LDL- Particle 561 nmol/L (<=527); Triglycerides 125 mg/dL (0-149)
== END ==
PROVIDERS: PCP Physician Assistant; Referring Provider Physician Assistant Medical; Visit Provider Physician Assistant Medical
DX: E78.00 Pure hypercholesterolemia, unspecified (principal)
CPT/HCPCS: 36415; 80053; 80061; 83704

== ENCOUNTER → 2021-10-19 09:38 | Outpatient (CLI) | payer MEDICARE, SELFPAY ==
[2021-10-19 10:37] LABS: COVID19 -Nasal RAPID Negative (Negative)
== END ==
PROVIDERS: PCP Physician Assistant; Visit Provider Nurse Practitioner Family
DX: Z20.822 Contact with and (suspected) exposure to COVID-19 (principal)
CPT/HCPCS: 87635; C9803

== ENCOUNTER 2021-10-20 07:16 | Day surgery (SDC) | payer MEDICARE, SELFPAY ==
[2021-10-20] MEDS: PROPARACAINE 0.5% OPHTH SOL 2 DROPS EYE-OP (07:41)
[2021-10-20] MEDS: CATARACT EYE COMPOUND (10 DROPS/SYRINGE) 3 DROPS EYE-OP (07:42)
[2021-10-20 07:46] VITALS: BP 196/87; PULSE 68; RESP 16; TEMP 36.3; O2SAT 100; BMI 25.0
--- NOTE | 2021-10-20 09:05 | PM.PREOP ---
Pre-operative Note Interval Note History & Physical reviewed/Exam performed by Physician: Yes Changes to H&P: No
--- NOTE | 2021-10-20 09:05 | PM.OP.1 ---
Operative Date/Time/Diagnoses Pre-op diagnosis: Nuclear cataract right eye Procedure & Clinicians Procedure: Cataract Surgery Same procedure as scheduled: Yes Surgeon: James Landa Anesthesia Type: MAC +/- and Sedation Operative Notes Procedure in detail: Patient brought to the operating suite. Tetracaine drops placed in the right eye.Marking instrument was used to sruthi the 180 degree meridian. Patient was prepped and draped in sterile manner. Wire lid speculum was placed in the eye. Betadine drops were placed on the eye. This was irrigated. Lidocaine jelly was placed on the eye. A paracentesis port was created with a side-port blade. 0.1 mL 1% preservative free lidocaine was injected into the anterior chamber. The anterior chamber was deepened with viscoelastic. 2.6 mm keratome was used to create a temporal clear corneal incision. Cystotome and Utrata forceps were used to create continuous tear capsulorrhexis. Balanced salt solution was used to hydro dissect the nucleus. The phacoemulsification handpiece was inserted and the nucleus was removed using the stop and chop technique. The irrigation aspiration handpiece was inserted and the remaining cortex was removed. Anterior chamber was deepened with viscoelastic. An Correa [id number] intraocular lens with a power of 23.5 was injected into the capsular bag. Irrigation aspiration handpiece was inserted and the remaining viscoelastic was removed. The lens was rotated to the 180 degree meridian. Incision was hydrated with balanced salt solution and found to be leak free with pressure with Weck-Kristal sponges. 0.1 mL Vigamox injected anterior chamber. 0.3 mL Kenalog 10 mg was injected subconjunctivally. Lid speculum was removed. The patient left the operating room in excellent condition. Complications: none Post-operative Condition: stable Disposition: same day surgery
[2021-10-20] MEDS: HYALURONATE SODIUM 30 MG-10 MG/ML SYRINGES 1 BOX INTRAOCULA (09:31)
[2021-10-20] MEDS: MOXIFLOXACIN INJ 4 MG/0.8 ML VIAL 0.5 MG EYE-OP (09:33)
[2021-10-20] MEDS: PHENYLEPHRINE/LIDOCAINE VIAL (OR) 0.2 ML EYE-OP (09:34)
[2021-10-20] MEDS: TRIAMCINOLONE 50 MG/5 ML VIAL INJ (09:34)
[2021-10-20] MEDS: LIDOCAINE 2% (GLYDO) 6 ML GEL TOP (09:34)
[2021-10-20] MEDS: BALANCED SALT IRRIG SOLN NO.2 500 ML, EPINEPHrine 1 MG IRR (09:35)
[2021-10-20] MEDS: TETRACAINE 0.5% OPHTH DROPS 4 ML 2 DROPS EYE-OP (09:35)
[2021-10-20 09:37] VITALS: BP 148/69; PULSE 62; RESP 16; TEMP 36.5; O2SAT 98
== END 2021-10-20 10:00 | disposition home or self-care (01) ==
PROVIDERS: PCP Physician Assistant; Referring Provider Ophthalmology; Visit Provider Ophthalmology
PROC: (CPT 66984; principal; 2021-10-20 09:15)
DX: H25.11 Age-related nuclear cataract, right eye (principal); I10 Essential (primary) hypertension; Z95.0 Presence of cardiac pacemaker
CPT/HCPCS: 66984; J0171; J2250; J3301; V2787

== ENCOUNTER → 2021-10-22 08:44 | Outpatient (CLI) | payer MEDICARE, SELFPAY ==
[2021-10-22 10:52] LABS: Alanine Aminotransferase 35 IU/L (<50); Albumin 4.2 g/dL (3.5-5.0); Albumin Globulin Ratio 1.9 (1.0-2.8); Alkaline Phosphatase 49 U/L (38-126); Aspartate Aminotransferase 32 IU/L (17-59); BUN Creatinine Ratio 21.4 (6-22); Bilirubin Total 0.5 mg/dL (0.2-1.3); Blood Urea Nitrogen 18 mg/dL (9-20); Calcium 9.2 mg/dL (8.4-10.2); Carbon Dioxide 27 mmol/L (22-32); Chloride 104 mmol/L (98-107); Estimated Glomerular Filt Rate > 60.0 mL/min (>60); Globulin 2.2 g/dL (1.7-4.1); Glucose 102 mg/dL (80-110); HEMOLYSIS < 15 (0-50); Potassium 4.1 mmol/L (3.4-5.1); Sodium 139 mmol/L (137-145); Total Protein 6.4 g/dL (6.3-8.2)
[2021-10-26 14:49] LABS: Cholesterol, Total 128 mg/dL (100-199); HDL-Cholesterol 60 mg/dL (>39); HDL-Particle (Total) 49.8 umol/L (>=30.5); LDL Particle 826 nmol/L (<1000); LDL Size 19.7 nm (>20.5); LDL-Cholsterol 53 mg/dL (0-99); LP-IR Score 41 (<=45); Small LDL- Particle 589 nmol/L (<=527); Triglycerides 76 mg/dL (0-149)
== END ==
PROVIDERS: PCP Physician Assistant; Referring Provider Physician Assistant Medical; Visit Provider Specialist
DX: E78.2 Mixed hyperlipidemia (principal)
CPT/HCPCS: 36415; 80053; 80061; 83704

== ENCOUNTER → 2021-11-09 09:51 | Outpatient (CLI) | payer MEDICARE, SELFPAY ==
[2021-11-09 12:22] LABS: COVID19 -Nasal RAPID Negative (Negative)
== END ==
PROVIDERS: PCP Physician Assistant; Visit Provider Family Medicine Sleep Medicine
DX: Z20.822 Contact with and (suspected) exposure to COVID-19 (principal)
CPT/HCPCS: 87635; C9803

== ENCOUNTER 2021-11-10 06:51 | Day surgery (SDC) | payer MEDICARE, SELFPAY ==
[2021-11-10 07:05] VITALS: BP 193/82; PULSE 65; RESP 16; TEMP 36.4; O2SAT 100; BMI 25.0
[2021-11-10] MEDS: PROPARACAINE 0.5% OPHTH SOL 2 DROPS EYE-OP (07:10)
[2021-11-10] MEDS: CATARACT EYE COMPOUND (10 DROPS/SYRINGE) 3 DROPS EYE-OP (07:11)
--- NOTE | 2021-11-10 08:09 | PM.PREOP ---
Pre-operative Note Interval Note History & Physical reviewed/Exam performed by Physician: Yes Changes to H&P: No
--- NOTE | 2021-11-10 08:10 | P.OP_ITS ---
Operative Date/Time/Diagnoses Pre-op diagnosis: Nuclear Cataract Left eye Post-op diagnosis: same Procedure & Clinicians Same procedure as scheduled: Yes Surgeon: James Landa Anesthesia Type: MAC +/- and Sedation Operative Notes Procedure in detail: Patient brought to the operating suite. Tetracaine drops placed in the left eye. Marking instrument was used to sruthi the vertical and horizontal meridians. Patient was prepped and draped in sterile manner. Wire lid speculum was placed in the eye. Marking instrument was used to sruthi the 10 degree meridian. Beta dine drops were placed on the eye. This was irrigated. Lidocaine jelly was placed on the eye. A paracentesis port was created with a side-port blade. 0.1 mL 1% preservative free lidocaine was injected into the anterior chamber. The anterior chamber was deepened with viscoelastic. 2.6 mm keratome was used to create a temporal clear corneal incision. Cystotome and Utrata forceps were used to create continuous tear capsulorrhexis. Balanced salt solution was used to hydro dissect the nucleus. The phacoemulsification handpiece was inserted and the nucleus was removed using the stop and chop technique. The irrigation aspiration handpiece was inserted and the remaining cortex was removed. Anterior chamber was deepened with viscoelastic. An Correa [id number] intraocular lens with a power of 24.5 was injected into the capsular bag. Irrigation aspiration handpiece was inserted and the remaining viscoelastic was removed. The lens was rotated to the 10 degree meridian. Incision was hydrated with balanced salt solution and found to be leak free with pressure with Weck-Kristal sponges. 0.1 mL Vigamox injected anterior chamber. 0.3 mL Kenalog 10 mg was injected subconjunctivally. Lid speculum was removed. The patient left the operating room in excellent condition. Complications: none Post-operative Condition: stable Disposition: same day surgery
--- NOTE | 2021-11-10 08:17 | SUR.OPER ---
Supine on eye stretcher, head on extension cradle secured with tape. Arms tucked at sides with blanket. Pillow under knees.
[2021-11-10] MEDS: HYALURONATE SODIUM 30 MG-10 MG/ML SYRINGES 1 BOX INTRAOCULA (08:31)
[2021-11-10] MEDS: TRIAMCINOLONE 50 MG/5 ML VIAL INJ (08:32)
[2021-11-10] MEDS: PHENYLEPHRINE/LIDOCAINE VIAL (OR) 0.2 ML EYE-OP (08:32)
[2021-11-10] MEDS: MOXIFLOXACIN INJ 4 MG/0.8 ML VIAL 0.5 MG EYE-OP (08:32)
[2021-11-10] MEDS: LIDOCAINE 2% (GLYDO) 6 ML GEL TOP (08:33)
[2021-11-10] MEDS: TETRACAINE 0.5% OPHTH DROPS 4 ML 2 DROPS EYE-OP (08:33)
[2021-11-10] MEDS: BALANCED SALT IRRIG SOLN NO.2 500 ML, EPINEPHrine 1 MG IRR (08:33)
[2021-11-10 08:57] VITALS: BP 160/76; PULSE 60; RESP 16; TEMP 36.7; O2SAT 98
== END 2021-11-10 09:02 | disposition home or self-care (01) ==
PROVIDERS: PCP Physician Assistant; Referring Provider Ophthalmology; Visit Provider Ophthalmology
PROC: (CPT 66984; principal; 2021-11-10 08:15)
DX: H25.12 Age-related nuclear cataract, left eye (principal); I10 Essential (primary) hypertension; Z95.0 Presence of cardiac pacemaker
CPT/HCPCS: 66984; J0171; J2250; J3301; V2787

== ENCOUNTER → 2021-11-24 07:44 | Outpatient (CLI) | payer MEDICARE, SELFPAY ==
[2021-11-24 08:58] LABS: BUN Creatinine Ratio 21.8 (6-22); Blood Urea Nitrogen 19 mg/dL (9-20); Calcium 8.7 mg/dL (8.4-10.2); Carbon Dioxide 30 mmol/L (22-32); Chloride 106 mmol/L (98-107); Estimated Glomerular Filt Rate > 60 mL/min (>60); Glucose 102 mg/dL (80-110); HEMOLYSIS < 15 (0-50); Potassium 4.2 mmol/L (3.4-5.1); Sodium 140 mmol/L (137-145)
== END ==
PROVIDERS: PCP Physician Assistant; Referring Provider Specialist; Visit Provider Specialist
DX: I10 Essential (primary) hypertension (principal); E78.2 Mixed hyperlipidemia
CPT/HCPCS: 36415; 80048

== ENCOUNTER → 2022-04-24 07:49 | Outpatient (CLI) | payer MEDICARE, SELFPAY ==
[2022-04-24 09:53] LABS: Alanine Aminotransferase 32 IU/L (<50); Albumin 4.1 g/dL (3.5-5.0); Albumin Globulin Ratio 1.7 (1.0-2.8); Alkaline Phosphatase 65 U/L (38-126); Aspartate Aminotransferase 30 IU/L (17-59); BUN Creatinine Ratio 20.5 (6-22); Bilirubin Total 0.8 mg/dL (0.2-1.3); Blood Urea Nitrogen 16 mg/dL (9-20); Calcium 8.9 mg/dL (8.4-10.2); Carbon Dioxide 29 mmol/L (22-32); Chloride 101 mmol/L (98-107); Cholesterol 126 mg/dL (140-199); Estimated Glomerular Filt Rate > 60 mL/min (>60); Globulin 2.4 g/dL (1.7-4.1); Glucose 106 mg/dL (80-110); HDL Cholesterol 57 mg/dL (40-60); HEMOLYSIS < 15 (0-50); LDL Cholesterol Calculated 45 mg/dL (<100); Magnesium 2.2 mg/dL (1.6-2.3); Potassium 3.5 mmol/L (3.4-5.1); Sodium 140 mmol/L (137-145); Total Protein 6.5 g/dL (6.3-8.2); Triglycerides 121 mg/dL (35-150)
== END ==
PROVIDERS: PCP Physician Assistant; Referring Provider Specialist; Visit Provider Specialist
DX: I10 Essential (primary) hypertension (principal); E78.2 Mixed hyperlipidemia
CPT/HCPCS: 36415; 80053; 80061; 83735